=== PATIENT | female | born 1960 | race Caucasian/White ===

== ENCOUNTER 2017-12-22 18:44 | Emergency (ER) | payer MEDICARE, OTHER ==
[~2017-12-22] VITALS: Ht 160 cm; Wt 90.7 kg
[~2017-12-22 18:44] MED LIST: ACYC400 PO; ADIPEX; ALPR.5 PO; ASCO500 PO; ASPI81CH PO; ASPI81EC PO; ATEN25 PO; ATEN50; ATEN50 PO; ATOR20 PO; Adipex-P37.5 M1 PO; BUPR150T2; CALC.25 PO; CALCA500CH PO; CALCAVITD PO; CARV6.25 PO; CHOL10002 PO; CYAN1000I IM; CYCL10 PO; Coq-10100 MG PO; ESCI10; ESCI10 PO; ESCI20 PO; ESCI5; FURO20 PO; GABA100 PO; HYDACE5 PO; HYDCHL25; HYDCHL25 PO; IRON PO; ISOMON30 PO; LEVSOD100; LEVSOD100 PO; LEVSOD150 PO; LEVSOD50 PO; LEVSOD75 PO; LEVSOD88 PO; LISI20; LISI20 PO; META800 PO; METF500; METF500C PO; NAPR500 PO; NITR.4SL SL; OMEP20ER PO; OXYACE7.5T PO; PRAV10 PO; Percocet 5-3251 EACH PO; Prinivil10 MG PO; RABE20; ROPI.25; TRAM50; TRAM50 PO; TUMS PO; URSO300 PO; VENL150ER PO; YAZ; [UNRECOGNIZED DRUG - REMARK]
[2017-12-22 19:38] LABS: BASOPHILS ABSOLUTE AUTO 0.03 K/mm3 (0.00-0.23); BASOPHILS PERCENT AUTO 1 % (0-2); EOSINOPHILS ABSOLUTE AUTO 0.21 K/mm3 (0.00-0.68); EOSINOPHILS PERCENT AUTO 3 % (0-6); Hematocrit 42.5 % (33.0-51.0); Hemoglobin 13.4 g/dL (11.5-16.0); IMMATURE GRAN ABSOLUTE AUTO 0.01 K/mm3 (0.00-0.10); IMMATURE GRAN PERCENT AUTO 0 % (0-1); LYMPHOCYTES ABSOLUTE AUTO 2.47 K/mm3 (0.84-5.20); LYMPHOCYTES PERCENT AUTO 38 % (21-46); MONOCYTES ABSOLUTE AUTO 0.44 K/mm3 (0.16-1.47); MONOCYTES PERCENT AUTO 7 % (4-13); Mean Corpuscular HGB 26.7 pg (26.0-34.0); Mean Corpuscular HGB Conc 31.5 g/dL (31.5-36.5); Mean Corpuscular Volume 85 fL (80-100); Mean Platelet Volume 10.2 fL (9.1-12.4); NEUTROPHILS ABSOLUTE AUTO 3.36 K/mm3 (1.96-9.15); NEUTROPHILS PERCENT AUTO 52 % (41-73); Platelet Count 284 K/mm3 (150-400); RDW Coefficient Variation 13.5 % (11.7-14.2); RDW Standard Deviation 41.7 fL (35.1-46.3); Red Blood Cell Count 5.02 M/mm3 (3.80-5.20); White Blood Cell Count 6.52 K/mm3 (4.00-11.30)
[2017-12-22 19:56] LABS: Alanine Aminotransfer (ALT/SGP 332 U/L (12-78); Albumin, Blood 3.7 g/dL (3.4-5.0); Albumin/Globulin Ratio 0.9 (0.8-1.8); Alk Phos 387 U/L (50-136); Anion Gap 6 mmol/L (6-16); Aspartate Aminotrans (AST/SGOT 292 U/L (12-37); Bilirubin, Total 0.7 mg/dL (0.1-1.0); Blood Urea Nitrogen 11 mg/dL (8-24); Bun/Creatinine Ratio 19.7 (12.0-20.0); CO2, Blood 29 mmol/L (21-32); Chloride, Blood 103 mmol/L (98-108); Creatinine, Blood 0.56 mg/dL (0.40-1.00); Globulin, Blood 4.3 g/dL (2.2-4.0); Glomerular Filtration Rate >60 (60-); Glucose, Blood 127 mg/dL (70-99); Potassium, Blood 4.2 mmol/L (3.5-5.5); Sodium, Blood 138 mmol/L (136-145); Troponin I <0.015 ng/mL (0.000-0.040)
[2018-11-11] MEDS ORDERED: LEVSOD75 PO (10:39)
[2018-11-11] MEDS ORDERED: CARVEDILOL PO (10:40)
[2018-11-11] MEDS ORDERED: Omeprazole20 M1 PO (10:41)
[2018-11-11] MEDS ORDERED: ACYC400 PO (10:44)
[2018-11-11] MEDS ORDERED: Nitrostat0.4 MG SL (10:45)
[2018-11-11] MEDS ORDERED: TRAM50 PO (10:46)
[2018-11-11] MEDS ORDERED: ALBU90OI INH (10:47)
[2018-11-11] MEDS ORDERED: MIRALAX17 GM PO (10:48)
[2018-11-11] MEDS ORDERED: METFORMIN HCL1000 MG PO (11:02)
== END 2017-12-22 23:15 | disposition short-term general hospital (02) ==
LOC: ER 18:44
PROVIDERS: Emergency Medicine
DX: K83.8 Other specified diseases of biliary tract (principal); R79.89 Other specified abnormal findings of blood chemistry; I11.0 Hypertensive heart disease with heart failure; I50.9 Heart failure, unspecified; E11.9 Type 2 diabetes mellitus without complications; Z88.8 Allergy status to other drugs, medicaments and biological substances; Z79.899 Other long term (current) drug therapy; Z79.82 Long term (current) use of aspirin; Z90.49 Acquired absence of other specified parts of digestive tract
CPT/HCPCS: 36415; 74177; 80053; 83690; 84484; 85025; 93005; 93010; 96365; 96372; 96375; 96376; 99285; J1170; J2405; J2543; J2550; J7030; Q9967

== ENCOUNTER → 2018-01-07 | Outpatient (CLI) | payer MEDICARE, OTHER ==
[~2018-01-07] MED LIST changes: +ALBU90OI INH; +CARVEDILOL PO; +METFORMIN HCL1000 MG PO; +MIRALAX17 GM PO; +Nitrostat0.4 MG SL; +Omeprazole20 M1 PO
== END | disposition home or self-care (01) ==
LOC: LAB 09:56 → LAB SHORT 09:56
DX: L82.1 Other seborrheic keratosis (principal)
CPT/HCPCS: 88305

== ENCOUNTER 2018-11-19 08:13 | Day surgery (SDC) | payer MEDICARE, OTHER ==
[~2018-11-19] VITALS: Ht 162.6 cm; Wt 89.9 kg
--- NOTE | 2018-11-19 09:05 | NUR ---
11/19/18 0905 Naomi Grewal CALL LIGHT WITHIN REACH.
--- NOTE | 2018-11-19 10:42 | NUR ---
11/19/18 [id number] Naomi Grewal LIDOCAINE JELLY APPLIED POST PROCEDURE PER DOCTOR ORDER
--- NOTE | 2018-11-19 10:55 | NUR ---
11/19/18 7003 Paige Dong FAMILY UPDATED OF DELAY IN FINISHING THE CASE MD PEREZ WANTS TO GO BACK IN AND TATTOO A SIGMOID COLON POLYP SITE FOR THE NEXT COLONOSCOPY. FAMILY INFORMED THAT PT IS DOING WELL AND IS STABLE AND THEY SHOULD BE DONE SHORTLY.
== END 2018-11-19 11:31 | disposition home or self-care (01) ==
LOC: ORSCSDS 08:13
PROVIDERS: Student in an Organized Health Care Education/Training Program
PROC: 3E0H8GC Introduction of Other Therapeutic Substance into Lower GI, Via Natural or Artificial Opening Endoscopic (ICD-10-PCS; principal; 2018-11-19 09:30)
PROC: 0DBN8ZX Excision of Sigmoid Colon, Via Natural or Artificial Opening Endoscopic, Diagnostic (ICD-10-PCS; principal; 2018-11-19 09:30)
DX: R19.7 Diarrhea, unspecified (principal); R10.9 Unspecified abdominal pain; Z86.010 Personal history of colon polyps; D12.5 Benign neoplasm of sigmoid colon; K64.8 Other hemorrhoids; K64.4 Residual hemorrhoidal skin tags; E11.9 Type 2 diabetes mellitus without complications; I10 Essential (primary) hypertension; Z79.899 Other long term (current) drug therapy
CPT/HCPCS: 82947; 88305; J2405; J7120

== ENCOUNTER → 2019-01-07 | Outpatient (CLI) | payer MEDICARE, OTHER | END | disposition home or self-care (01) | LOC: PLD 09:55 → LAB SHORT 09:55 | DX: C44.311 Basal cell carcinoma of skin of nose (principal); L57.0 Actinic keratosis | CPT/HCPCS: 88305 ==

== ENCOUNTER 2021-02-27 10:18 | Day surgery (SDC) | payer MEDICARE, OTHER ==
[~2021-02-27] VITALS: Ht 160 cm; Wt 86.9 kg
[2021-02-27] MEDS ORDERED: ATOR10 (11:14)
[2021-02-27] MEDS ORDERED: CLIMARA1 EACH (11:15)
--- NOTE | 2021-02-27 12:48 | NUR ---
02/27/21 1248 BLADIMIR TAN SIMFRANCYICONE USED DURING EXAM
== END 2021-02-27 13:39 | disposition home or self-care (01) ==
LOC: ORSCSDS 10:18
PROVIDERS: Student in an Organized Health Care Education/Training Program
PROC: 0DB48ZX Excision of Esophagogastric Junction, Via Natural or Artificial Opening Endoscopic, Diagnostic (ICD-10-PCS; principal; 2021-02-27 11:45)
PROC: 0DBN8ZX Excision of Sigmoid Colon, Via Natural or Artificial Opening Endoscopic, Diagnostic (ICD-10-PCS; principal; 2021-02-27 11:45)
PROC: 0DB78ZX Excision of Stomach, Pylorus, Via Natural or Artificial Opening Endoscopic, Diagnostic (ICD-10-PCS; principal; 2021-02-27 11:45)
PROC: 0DB98ZX Excision of Duodenum, Via Natural or Artificial Opening Endoscopic, Diagnostic (ICD-10-PCS; principal; 2021-02-27 11:45)
DX: K92.1 Melena (principal); K31.7 Polyp of stomach and duodenum; K63.5 Polyp of colon; E11.9 Type 2 diabetes mellitus without complications; Z79.899 Other long term (current) drug therapy; I10 Essential (primary) hypertension; E78.5 Hyperlipidemia, unspecified; E03.9 Hypothyroidism, unspecified; Z86.73 Personal history of transient ischemic attack (TIA), and cerebral infarction without residual deficits; Z79.82 Long term (current) use of aspirin; E66.9 Obesity, unspecified; Z68.34 Body mass index [BMI] 34.0-34.9, adult
CPT/HCPCS: 82947; 88305; 88342; J2704; J7120

== ENCOUNTER 2021-04-28 15:20 | Emergency (ER) | payer MEDICARE, OTHER ==
[~2021-04-28] VITALS: Ht 160 cm; Wt 84.4 kg
[~2021-04-28 15:20] MED LIST changes: +ATOR10; +CLIMARA1 EACH
[2021-04-28 15:52] LABS: Source, Urine Clean Catch
[2021-04-28 15:58] LABS: BASOPHILS ABSOLUTE AUTO 0.03 K/mm3 (0.00-0.23); BASOPHILS PERCENT AUTO 1 % (0-2); EOSINOPHILS ABSOLUTE AUTO 0.09 K/mm3 (0.00-0.68); EOSINOPHILS PERCENT AUTO 1 % (0-6); Hematocrit 42.1 % (33.0-51.0); Hemoglobin 13.7 g/dL (11.5-16.0); IMMATURE GRAN ABSOLUTE AUTO 0.01 K/mm3 (0.00-0.10); IMMATURE GRAN PERCENT AUTO 0 % (0-1); LYMPHOCYTES ABSOLUTE AUTO 1.57 K/mm3 (0.84-5.20); LYMPHOCYTES PERCENT AUTO 24 % (21-46); MONOCYTES ABSOLUTE AUTO 0.48 K/mm3 (0.16-1.47); MONOCYTES PERCENT AUTO 7 % (4-13); Mean Corpuscular HGB 28.7 pg (26.0-34.0); Mean Corpuscular HGB Conc 32.5 g/dL (31.5-36.5); Mean Corpuscular Volume 88 fL (80-100); Mean Platelet Volume 11.1 fL (9.1-12.4); NEUTROPHILS PERCENT AUTO 67 % (41-73); Platelet Count 239 K/mm3 (150-400); RDW Coefficient Variation 13.4 % (11.7-14.2); RDW Standard Deviation 43.7 fL (35.1-46.3); Red Blood Cell Count 4.77 M/mm3 (3.80-5.20); White Blood Cell Count 6.58 K/mm3 (4.00-11.30)
[2021-04-28 16:00] LABS: Appearance, Urine Hazy (Clear); Bilirubin, Urine Neg (Neg); Blood, Urine 1+ (Neg); Color, Urine Yellow (P-Yellow); Glucose Qualitative, Urine Neg (Neg); Ketones, Urine 1+ (Neg); Leukocyte Esterase, Urine Neg (Neg); Nitrite, Urine Neg (Neg); Protein, Urine 1+ (Neg); Urobilinogen, Urine NORM (Normal)
[2021-04-28 16:17] LABS: Alanine Aminotransfer (ALT/SGP 89 U/L (12-78); Albumin, Blood 3.5 g/dL (3.4-5.0); Albumin/Globulin Ratio 0.8 (0.8-1.8); Alk Phos 182 U/L (50-136); Amylase, Blood 25 U/L (25-115); Anion Gap 5 mmol/L (6-16); Aspartate Aminotrans (AST/SGOT 51 U/L (12-37); Bilirubin, Total 0.7 mg/dL (0.1-1.0); Blood Urea Nitrogen 7 mg/dL (8-24); Bun/Creatinine Ratio 9.7 (12.0-20.0); CO2, Blood 28 mmol/L (21-32); Calcium, Blood 9.4 mg/dL (8.5-10.1); Chloride, Blood 109 mmol/L (98-108); Creatinine, Blood 0.72 mg/dL (0.40-1.00); Globulin, Blood 4.2 g/dL (2.2-4.0); Glomerular Filtration Rate >60 (60-); Glucose, Blood 104 mg/dL (70-99); Sodium, Blood 142 mmol/L (136-145); Total Protein, Blood 7.7 g/dL (6.4-8.2)
[2021-04-28 16:26] LABS: Bacteria Many /hpf; Red Blood Cells, Urine Rare /hpf (0-2); Squamous Epithelial Cells Many /hpf (Few); White Blood Cells, Urine 0-2 /hpf (0-5)
[2021-04-28] MEDS ORDERED: Norco 5-325 Ta1 EACH PO (20:42)
== END 2021-04-28 20:56 | disposition home or self-care (01) ==
LOC: ER 15:20
PROVIDERS: Physician Assistant
DX: R10.13 Epigastric pain (principal); E78.5 Hyperlipidemia, unspecified; E11.9 Type 2 diabetes mellitus without complications; I11.0 Hypertensive heart disease with heart failure; Z79.899 Other long term (current) drug therapy; I50.9 Heart failure, unspecified; Z88.6 Allergy status to analgesic agent
CPT/HCPCS: 36415; 74177; 80053; 81001; 82150; 83690; 84484; 85025; 87086; 96374-59; 96375; 99284-25; A9270; J2270; J2405; Q9967

== ENCOUNTER → 2022-07-12 | Outpatient (CLI) | payer MEDICARE, OTHER | END | disposition home or self-care (01) | LOC: LAB SHORT 11:30 | DX: R30.0 Dysuria (principal) ==

== ENCOUNTER 2023-10-16 07:50 | Emergency (ER) | payer MEDICARE, OTHER ==
[~2023-10-16] VITALS: Ht 160 cm; Wt 83.9 kg
[~2023-10-16 07:50] MED LIST changes: +Norco 5-325 Ta1 EACH PO
[2023-10-16 08:17] LABS: BASOPHILS ABSOLUTE AUTO 0.04 K/mm3 (0.00-0.23); BASOPHILS PERCENT AUTO 1 % (0-2); EOSINOPHILS ABSOLUTE AUTO 0.27 K/mm3 (0.00-0.68); EOSINOPHILS PERCENT AUTO 3 % (0-6); Hematocrit 47.6 % (33.0-51.0); Hemoglobin 15.8 g/dL (11.5-16.0); IMMATURE GRAN ABSOLUTE AUTO 0.02 K/mm3 (0.00-0.10); IMMATURE GRAN PERCENT AUTO 0 % (0-1); LYMPHOCYTES ABSOLUTE AUTO 1.94 K/mm3 (0.84-5.20); LYMPHOCYTES PERCENT AUTO 23 % (21-46); MONOCYTES ABSOLUTE AUTO 0.41 K/mm3 (0.16-1.47); MONOCYTES PERCENT AUTO 5 % (4-13); Mean Corpuscular HGB 29.5 pg (26.0-34.0); Mean Corpuscular HGB Conc 33.2 g/dL (31.5-36.5); Mean Corpuscular Volume 89 fL (80-100); Mean Platelet Volume 10.1 fL (9.1-12.4); NEUTROPHILS ABSOLUTE AUTO 5.87 K/mm3 (1.96-9.15); NEUTROPHILS PERCENT AUTO 69 % (41-73); Platelet Count 286 K/mm3 (150-400); RDW Coefficient Variation 12.5 % (11.7-14.2); RDW Standard Deviation 40.9 fL (35.1-46.3); Red Blood Cell Count 5.35 M/mm3 (3.80-5.20); White Blood Cell Count 8.55 K/mm3 (4.00-11.30)
[2023-10-16 08:34] LABS: Bilirubin, Total 0.9 mg/dL (0.1-1.0); Bun/Creatinine Ratio 13.8 (12.0-20.0); Calcium, Blood 9.1 mg/dL (8.5-10.1); Creatinine, Blood 0.65 mg/dL (0.40-1.00); Potassium, Blood 4.1 mmol/L (3.5-5.5)
[2023-10-16 10:38] LABS: Cholesterol 126 mg/dL (50-200); Triglycerides 307 mg/dL (30-160)
[2023-10-16] MEDS ORDERED: Roxicodone5 MG PO (10:46)
[2023-10-16] MEDS ORDERED: ONDA4ODT MM (10:46)
[2023-10-16 10:56] VITALS: BP 147/92
== END 2023-10-16 10:56 | disposition home or self-care (01) ==
LOC: ER 07:50
PROVIDERS: Emergency Medicine
DX: K85.90 Acute pancreatitis without necrosis or infection, unspecified (principal); K86.1 Other chronic pancreatitis; I11.0 Hypertensive heart disease with heart failure; I50.9 Heart failure, unspecified; E11.9 Type 2 diabetes mellitus without complications; E78.5 Hyperlipidemia, unspecified; E03.9 Hypothyroidism, unspecified; Z88.8 Allergy status to other drugs, medicaments and biological substances; Z79.899 Other long term (current) drug therapy
CPT/HCPCS: 74177; 80053; 82465; 83690; 84478; 84484; 85025; 99284-25; A9270; Q9967

== ENCOUNTER 2025-04-06 17:45 | Emergency (ER) | payer OTHER, MEDICARE ==
[~2025-04-06] VITALS: Ht 160 cm; Wt 73.9 kg
[~2025-04-06 17:45] MED LIST changes: +ONDA4ODT MM; +Roxicodone5 MG PO
[2025-04-06 18:26] VITALS: BP 145/96
[2025-04-06] MEDS ORDERED: Diphth,Pertuss(Acell),Tet Vac 0.5 ML VIAL IM ONE (18:40)
[2025-04-06] MEDS ORDERED: Amoxicillin/Clavulanate K 875 MG Tab PO ONE (18:50)
[2025-04-06] MEDS ORDERED: AMOCLA875 PO (18:50)
== END 2025-04-06 19:11 | disposition home or self-care (01) ==
LOC: ER 17:45
DX: S70.372A Other superficial bite of left thigh, initial encounter (principal); W54.0XXA Bitten by dog, initial encounter; I11.0 Hypertensive heart disease with heart failure; I50.9 Heart failure, unspecified; E11.9 Type 2 diabetes mellitus without complications; Z88.8 Allergy status to other drugs, medicaments and biological substances; Z79.890 Hormone replacement therapy; Z79.899 Other long term (current) drug therapy
CPT/HCPCS: 90471; 90715; 99283-25; A9270

== ENCOUNTER 2025-10-16 13:12 | Emergency (ER) | payer MEDICARE, OTHER ==
[~2025-10-16] VITALS: Ht 160 cm; Wt 72.6 kg
[~2025-10-16 13:12] MED LIST changes: +AMOCLA875 PO
[2025-10-16 14:17] LABS: BASOPHILS ABSOLUTE AUTO 0.05 K/mm3 (0.00-0.23); BASOPHILS PERCENT AUTO 1 % (0-2); EOSINOPHILS ABSOLUTE AUTO 0.13 K/mm3 (0.00-0.68); EOSINOPHILS PERCENT AUTO 2 % (0-6); Hematocrit 41.9 % (33.0-51.0); Hemoglobin 13.6 g/dL (11.5-16.0); IMMATURE GRAN ABSOLUTE AUTO 0.03 K/mm3 (0.00-0.10); IMMATURE GRAN PERCENT AUTO 0 % (0-1); LYMPHOCYTES ABSOLUTE AUTO 1.84 K/mm3 (0.84-5.20); LYMPHOCYTES PERCENT AUTO 28 % (21-46); MONOCYTES ABSOLUTE AUTO 0.37 K/mm3 (0.16-1.47); MONOCYTES PERCENT AUTO 6 % (4-13); Mean Corpuscular HGB Conc 32.5 g/dL (31.5-36.5); Mean Corpuscular Volume 89 fL (80-100); NEUTROPHILS ABSOLUTE AUTO 4.27 K/mm3 (1.96-9.15); NEUTROPHILS PERCENT AUTO 64 % (41-73); NRBC ABSOLUTE 0.00 K/mm3 (0.00-0.02); NRBC Auto 0.0 /100 WBC (0.0-0.2); Platelet Count 262 K/mm3 (150-400); RDW Coefficient Variation 12.7 % (11.7-14.2); RDW Standard Deviation 41.6 fL (35.1-46.3)
[2025-10-16 14:43] LABS: Alanine Aminotransfer (ALT/SGP 23.0 U/L (12-78); Albumin, Blood 3.6 g/dL (3.4-5.0); Albumin/Globulin Ratio 1.1 (0.8-1.8); Anion Gap 7.0 mmol/L (3-11); Aspartate Aminotrans (AST/SGOT 23.0 U/L (12-37); Bilirubin, Total 0.5 mg/dL (0.1-1.0); Blood Urea Nitrogen 14.0 mg/dL (8-24); CO2, Blood 29.0 mmol/L (21-32); Calcium, Blood 9.7 mg/dL (8.5-10.1); Chloride, Blood 105.0 mmol/L (98-108); Creatinine, Blood 0.81 mg/dL (0.40-1.00); Globulin, Blood 3.3 g/dL (2.2-4.0); Glucose, Blood 102.0 mg/dL (70-99); Potassium, Blood 4.1 mmol/L (3.5-5.5); Sodium, Blood 137.0 mmol/L (136-145); Total Protein, Blood 6.9 g/dL (6.4-8.2)
[2025-10-16 16:36] LABS: Source, Urine Clean Catch
[2025-10-16 16:59] LABS: Bilirubin, Urine Neg (Neg); Color, Urine Yellow (P-Yellow); Glucose Qualitative, Urine Neg (Neg); Ketones, Urine Neg (Neg); Leukocyte Esterase, Urine 1+ (Neg); Protein, Urine Neg (Neg); Specific Gravity, Urine 1.020 (1.003-1.022); Urobilinogen, Urine NORM (Normal)
[2025-10-16] MEDS ORDERED: PRED20 PO (18:58)
[2025-10-16 19:34] VITALS: BP 136/85
[2025-10-17] MEDS ORDERED: ALBU90OI INH (10:51)
[2025-10-17] MEDS ORDERED: Q-Tussin100 MG/5 M PO (23:50)
== END 2025-10-16 19:35 | disposition home or self-care (01) ==
LOC: ER 13:12
PROVIDERS: Physician Assistant
DX: R47.81 Slurred speech (principal); R13.10 Dysphagia, unspecified; R06.02 Shortness of breath; I50.9 Heart failure, unspecified; Z88.8 Allergy status to other drugs, medicaments and biological substances; Z79.899 Other long term (current) drug therapy; I10 Essential (primary) hypertension; Z87.442 Personal history of urinary calculi; E11.9 Type 2 diabetes mellitus without complications
CPT/HCPCS: 70450; 80053; 81001; 85025; 85379; 87086; 93005; 93010; 99284-25; J7512

== ENCOUNTER 2025-10-17 17:01 | Emergency (ER) | payer MEDICARE, OTHER ==
[~2025-10-17] VITALS: Ht 160 cm; Wt 74.8 kg
[~2025-10-17 17:01] MED LIST changes: +PRED20 PO
[2025-10-17 17:27] LABS: BASOPHILS ABSOLUTE AUTO 0.01 K/mm3 (0.00-0.23); BASOPHILS PERCENT AUTO 0 % (0-2); EOSINOPHILS ABSOLUTE AUTO 0.09 K/mm3 (0.00-0.68); EOSINOPHILS PERCENT AUTO 1 % (0-6); Hematocrit 45.0 % (33.0-51.0); Hemoglobin 14.9 g/dL (11.5-16.0); IMMATURE GRAN ABSOLUTE AUTO 0.05 K/mm3 (0.00-0.10); IMMATURE GRAN PERCENT AUTO 0 % (0-1); LYMPHOCYTES ABSOLUTE AUTO 0.92 K/mm3 (0.84-5.20); LYMPHOCYTES PERCENT AUTO 7 % (21-46); MONOCYTES ABSOLUTE AUTO 0.16 K/mm3 (0.16-1.47); MONOCYTES PERCENT AUTO 1 % (4-13); Mean Corpuscular HGB Conc 33.1 g/dL (31.5-36.5); Mean Corpuscular Volume 87 fL (80-100); NEUTROPHILS ABSOLUTE AUTO 12.40 K/mm3 (1.96-9.15); NEUTROPHILS PERCENT AUTO 91 % (41-73); NRBC ABSOLUTE 0.00 K/mm3 (0.00-0.02); NRBC Auto 0.0 /100 WBC (0.0-0.2); Platelet Count 317 K/mm3 (150-400); RDW Coefficient Variation 12.9 % (11.7-14.2); RDW Standard Deviation 40.5 fL (35.1-46.3)
[2025-10-17 17:48] LABS: Alanine Aminotransfer (ALT/SGP 26.0 U/L (12-78); Albumin, Blood 4.2 g/dL (3.4-5.0); Albumin/Globulin Ratio 1.0 (0.8-1.8); Anion Gap 11.0 mmol/L (3-11); Aspartate Aminotrans (AST/SGOT 19.0 U/L (12-37); Bilirubin, Total 0.3 mg/dL (0.1-1.0); Blood Urea Nitrogen 16.0 mg/dL (8-24); CO2, Blood 25.0 mmol/L (21-32); Calcium, Blood 10.0 mg/dL (8.5-10.1); Chloride, Blood 103.0 mmol/L (98-108); Creatinine, Blood 0.75 mg/dL (0.40-1.00); Globulin, Blood 4.1 g/dL (2.2-4.0); Glucose, Blood 195.0 mg/dL (70-99); Potassium, Blood 4.2 mmol/L (3.5-5.5); Sodium, Blood 135.0 mmol/L (136-145); Total Protein, Blood 8.3 g/dL (6.4-8.2)
[2025-10-17 22:16] LABS: pH Blood Venous 7.46 (7.34-7.37)
[2025-10-17 22:31] LABS: CORONAVIRUS COVID-19 AG Negative (NEGATIVE)
[2025-10-17] MEDS ORDERED: Q-Tussin100 MG/5 M PO (23:50)
[2025-10-18] VITALS: BP 132/83
== END 2025-10-18 00:13 | disposition home or self-care (01) ==
LOC: ER 17:01
PROVIDERS: Emergency Medicine; Student in an Organized Health Care Education/Training Program
DX: R06.02 Shortness of breath (principal); E87.1 Hypo-osmolality and hyponatremia
CPT/HCPCS: 71046; 80053; 82803; 83690; 83880; 84484; 85025; 87428-QW; 93005; 93010; 99285-25